=== PATIENT | male | born 2000 | race Caucasian/White ===

== ENCOUNTER 2022-09-11 10:12 | Emergency (ER) | payer BC ==
[2022-09-11] MEDS ORDERED: ACETAMINOPHEN 500 MG TABLET (FP) PO ONE (10:21)
[2022-09-11] MEDS ORDERED: FAMOTIDINE 10 MG TABLET PO ONE (10:21)
[2022-09-11] MEDS ORDERED: ONDANSETRON *ODT* 4 MG TABLET SL ONE (10:21)
[2022-09-11] MEDS ORDERED: MAG HYDROX/AL HYDROX/SIMETH -MYLANTA- ORAL SUSPENSION PO ONE (10:21)
[2022-09-11] MEDS ORDERED: ONDANSETRON 4 MG/2 ML VIAL IVPUSH ONE (10:35)
[2022-09-11] MEDS ORDERED: FAMOTIDINE 20 MG/50 ML IVPB 20 MG/50 ML MG IVPB ONE ×2 (10:35→10:44)
[2022-09-11] MEDS ORDERED: ACETAMINOPHEN 1000 MG/100 ML BAG IVPB ONE (10:35)
[2022-09-11] MEDS ORDERED: SODIUM CHLORIDE 0.9% 500 ML INFUS.BAG IV ONE (10:35)
[2022-09-11 10:42] VITALS: RESP 16; BMI 18.8
[2022-09-11] MEDS ORDERED: ONDANSETRON 4 MG/2 ML VIAL ONE (10:44)
[2022-09-11] MEDS ORDERED: ACETAMINOPHEN INJECTION 100 ML IVPB ONE (10:44)
[2022-09-11 11:26] LABS: ALBUMIN 5.4 g/dl (3.4-5.0); BILIRUBIN,TOTAL 1.2 mg/dl (0.2-1); CALCIUM 10.1 mg/dl (8.5-10); CREATININE 0.8 mg/dl (0.55-1.3); HEMATOCRIT 48.8 % (35.4-49); HEMOGLOBIN 17.2 G/dL (11.7-16.9); MCH 31.3 pg (25.7-33.7); MCHC 35.3 g/dl (32.0-35.9); MEAN CELL VOLUME 88.8 fl (80-96); MEAN PLT VOLUME 9.9 fl (7.5-11.1); PLATELET COUNT 301.4 10^3/uL (134-434); RDW 13.3 % (11.9-15.9); TOT PROT 8.4 g/dl (6.4-8.2); WHITE BLOOD COUNT 15.7 10^3/uL (4.0-10.8)
[2022-09-11] MEDS ORDERED: POTASSIUM CHLORIDE TABS 20 MEQ TABLET.ER (FP) PO ONE ×2 (11:40→12:00)
[2022-09-11] MEDS ORDERED: KCL 10 MEQ IVPB 10 MEQ/100 ML INFUS.BAG IVPB SCH (11:45)
[2022-09-11] MEDS ORDERED: KCL 10 MEQ IVPB 10 MEQ/100 ML INFUS.BAG IVPB ONE (12:00)
[2022-09-11 13:56] VITALS: BP 131/89; PULSE 97; TEMP 98.1
[2022-09-11 16:28] LABS: PLATELET ESTIMATE ADEQUATE
[2022-09-11 23:39] LABS: MAGNESIUM 2.4 mg/dL (1.8-2.4)
== END 2022-09-11 14:00 | disposition home or self-care (01) ==
LOC: FER 10:12
PROC: 3E0333Z Introduction of Anti-inflammatory into Peripheral Vein, Percutaneous Approach (ICD-10-PCS; principal; 2022-09-11)
PROC: 3E033GC Introduction of Other Therapeutic Substance into Peripheral Vein, Percutaneous Approach (ICD-10-PCS; 2022-09-11)
PROC: 3E033GC Introduction of Other Therapeutic Substance into Peripheral Vein, Percutaneous Approach (ICD-10-PCS; 2022-09-11)
DX: R11.2 Nausea with vomiting, unspecified (principal)
CPT/HCPCS: 0241U-QW; 36415; 74177-TC; 80053; 83735; 85025; 99285-25; Q9967